=== PATIENT | female | born 1945 | race Caucasian/White ===

== ENCOUNTER 2018-03-11 13:36 | Inpatient (IN) ==
[2018-03-11] MEDS ORDERED: Ondansetron 4 MG/2 ML VIAL IVP ONE ×2 (14:00→17:28)
[2018-03-11] MEDS ORDERED: 0.9 % Sodium Chloride 500 ML IVC ONE (14:00)
[2018-03-11] MEDS ORDERED: *HR* FentaNYL (PF) 100 MCG/2 ML VIAL IVP ONE (14:00)
--- NOTE | 2018-03-11 14:12 | Emergency Department Note ---
Disposition Clinical Impression: Abdominal pain Qualifiers: Abdominal location: generalized Qualified Code(s): R10.84 - Generalized abdominal pain Disposition: Still a Patient Referrals: Jamarcus Rodriguez DO [Primary Care Provider] - General Adult HPI - General Chief complaint: ED Abdominal Pain Stated complaint: abd pain, rectal bleeding Time Seen by Provider: 03/11/18 13:46 Source: patient Limitations: no limitations - History of Present Illness Pain Scale: 9 - Related Data Allergies Allergy/AdvReac Type Severity Reaction Status Date / Time No Known Allergies Allergy Verified 03/11/18 13:41 Past Medical History - Past Medical History Medical history: Reports: arthritis, coronary artery disease, GERD, hyperlipidemia, hypertension, thyroid disease, other Psychiatric history: Reports: no psych history DISTRIBUTION CENTER ASSISTANT history: Reports: no DISTRIBUTION CENTER ASSISTANT history - Social History Smoking Status: Never smoker Smokeless Tobacco Status: No Alcohol use: Reports: none Drug use: Reports: none Physical Exam - General Limitations: no limitations General appearance: alert, in distress, obese Course - Reevaluation(s) Reevaluation #1: Attestation note: Patient was seen with the emergency medicine resident/nurse practitioner/ physician payroll administrative assistant/transitional resident/medical student: Dr. Shruthi Thompson I have personally performed a face to face evaluation on this patient. I have reviewed and agree with history and physical examination patient management and disposition. Briefly the salient points of the case are as follows: 72-year-old female presents by EMS comfortable by family for rectal pain abdominal pain and low- grade fever and rectal bleeding. Patient was seen at [facility] emergency Department last night, patient abdominal pelvic CT she said that "they saw something or attached" and my bowel. And they sent her home with prescription for [place] that she did not fill. Symptoms worsen this morning she contact her PCP who instructed with emergency Department patient having crampy pain nausea and no vomiting but has not eaten anything since yesterday. Patient appears in moderate distress with trial mucosa diffuse tenderness but no rebound. Patient will get A Release We Can See What Workup Was Done at the outside ED Also Do Screening Labs Here Give Her IV Fluid Give Her Fentanyl and Zofran for Pain and Nausea Control. Admission Is Being Considered. Disposition Pending. Time: 14:10 Vital Signs Temperature 100 F H 03/11/18 13:41 Pulse Rate 94 03/11/18 13:41 Respiratory Rate 20 03/11/18 13:41 Blood Pressure 135/74 03/11/18 13:41 O2 Sat by Pulse Oximetry 96 03/11/18 13:41 Temperature 100 F H 03/11/18 13:53 Pulse Rate 87 03/11/18 14:08 Respiratory Rate 21 03/11/18 14:08 Blood Pressure 106/52 03/11/18 14:08 O2 Sat by Pulse Oximetry 96 03/11/18 14:08 Oxygen Delivery Oxygen Delivery Room Air
--- NOTE | 2018-03-11 14:20 | Emergency Department Note ---
Disposition Clinical Impression: Bright red blood per rectum, Severe sepsis, Colitis Disposition: Admitted As Inpatient Condition: Fair Referrals: Jamarcus Rodriguez DO [Primary Care Provider] - Forms: ED Satisfaction Letter, Work/School Release Time of Disposition: 17:26 General Adult HPI - General Chief complaint: ED Abdominal Pain Stated complaint: abd pain, rectal bleeding Time Seen by Provider: 03/11/18 13:46 Source: patient Limitations: no limitations - History of Present Illness HPI Narrative: 72 yo female with diarrhea and rectal bleeding. She was seen at [facility] ER last night and told there was "something attached" to her bowel and that was "" and states she was told she should expect abdominal pain for the next several days. She was prescribed norco, which she has not filled. She woke up this morning with rectal bleeding running out of her depend and on to a pad on her bed. She has diarrhea that won't quit - when she dry heaves she has diarrhea. She has nausea with dry heaves, but she has not eaten today or last night. She drank a small amount of Sprite this morning. Pain Scale: 9 - Related Data Home Medications Medication Instructions Recorded Confirmed Atorvastatin Calcium [Lipitor] 80 mg PO HS 03/11/18 03/11/18 Citalopram [CeleXA] 20 mg PO DAILY 03/11/18 03/11/18 Hydrocortisone [Cortef] 10 mg PO QPM 03/11/18 03/11/18 Hydrocortisone [Cortef] 20 mg PO QAM 03/11/18 03/11/18 Isosorbide MONOnitrate (24 HR) 60 mg PO DAILY 03/11/18 03/11/18 [Imdur] Levothyroxine Sodium [Levoxyl] 75 mcg PO DAILY 03/11/18 03/11/18 Lisinopril [Zestril] 10 mg PO DAILY 03/11/18 03/11/18 Metoprolol [Lopressor] 25 mg PO BID 03/11/18 03/11/18 Omeprazole [PriLOSEC] 20 mg PO DAILY 03/11/18 03/11/18 Potassium Chloride [Klor-Con 10] 10 meq PO DAILY 03/11/18 03/11/18 Tolterodine LA (24 HR) [Detrol LA] 2 mg PO DAILY 03/11/18 03/11/18 Tramadol HCl [Ultram] 50 mg PO QID PRN 03/11/18 03/11/18 hydroCHLOROthiazide 25 mg PO DAILY 03/11/18 03/11/18 [Hydrochlorothiazide] Allergies Allergy/AdvReac Type Severity Reaction Status Date / Time No Known Allergies Allergy Verified 03/11/18 13:41 Past Medical History - Past Medical History Medical history: Reports: arthritis, coronary artery disease, GERD, hyperlipidemia, hypertension, thyroid disease, other Psychiatric history: Reports: no psych history FISHER EEL history: Reports: no FISHER EEL history - Social History Smoking Status: Never smoker Smokeless Tobacco Status: No Alcohol use: Reports: none Drug use: Reports: none Physical Exam - General Limitations: no limitations General appearance: alert, in distress, obese Course - Reevaluation(s) Reevaluation #1: Spoke to charge nurse at [facility]. Asked for labs and CT results. Charge nurse stated she would fax them - fax number given. Time: 14:24 Reevaluation #2: Spoke to radiology department. CT from [facility] Impression: No acute process. Hiatal hernia. Full report will be faxed. Time: 15:17 Reevaluation #3: Notified that patient had large stool with bright red blood per rectum. Rectal exam had not been performed before this time due to patient being taken to CT scan. Time: 16:20 Additional Reevaluation(s): Spoke to hospitalist, Dr. Taylor, who accepts patient for admission. Vital Signs Temperature 100 F H 03/11/18 13:41 Pulse Rate 94 03/11/18 13:41 Respiratory Rate 20 03/11/18 13:41 Blood Pressure 135/74 03/11/18 13:41 O2 Sat by Pulse Oximetry 96 03/11/18 13:41 Temperature 100 F H 03/11/18 13:53 Pulse Rate 87 03/11/18 14:08 Respiratory Rate 21 03/11/18 14:08 Blood Pressure 106/52 03/11/18 14:08 O2 Sat by Pulse Oximetry 96 03/11/18 14:08 Oxygen Delivery Oxygen Delivery Room Air
[2018-03-11 14:42] LABS: Basophils % 0.2 %; Eosinophils % 0.1 %
[2018-03-11 14:43] LABS: Basophils # 0.1 K/mcL (0.0-0.2); Hematocrit 40.8 % (35.3-44.9); Hemoglobin 13.9 g/dL (11.5-15.4); Immature Granulocytes % 0.8 % (0-4); Lymphocytes # 2.8 K/mcL (0.6-4.6); Lymphocytes % 9.7 %; Mean Corpuscular HGB Conc 34.1 g/dL (31.6-35.5); Mean Corpuscular Hemoglobin 32.3 pg (28.0-33.3); Mean Corpuscular Volume 94.7 fL (83.0-100.0); Mean Platelet Volume 9.6 fL (9.4-12.4); Monocytes # 2.1 K/mcL (0.0-1.3); Monocytes % 7.3 %; Neutrophils # 23.8 K/mcL (1.6-8.9); Platelet Count 227 K/mcL (140-400); Red Blood Count 4.31 M/mcL (3.82-4.97); Red Cell Distribution Width 13.3 % (11.5-14.5); Segmented Neutrophils % 81.9 %
[2018-03-11 14:47] LABS: Bilirubin,Urine Negative (Negative); Blood,Urine Trace (Negative); Clarity,Urine Clear (Clear); Color,Urine Yellow (Yellow); Glucose,Urine (UA) Normal (Normal); Ketones,Urine Negative (Negative); Leukocyte Esterase,Urine Negative (Negative); Nitrite,Urine Negative (Negative); Protein,Urine Trace mg/dL (Neg-Trace); Specific Gravity,Urine > 1.030 (1.010-1.025); Urobilinogen,Urine Normal (Normal)
[2018-03-11 14:50] LABS: Bacteria,Urine None Seen per hpf (None-Few); Hyaline Casts,Urine None Seen per lpf (None-Few); Squamous Epithelial Cell,Urine Many per lpf (None-Few)
[2018-03-11 15:00] LABS: Alanine Aminotransferase 15 Units/L (7-52); Albumin 3.7 g/dL (3.5-5.7); Albumin/Globulin Ratio 1.1 (1.1-2.2); Alkaline Phosphatase 108 Units/L (34-104); Aspartate Amino Transferase 21 Units/L (13-39); BUN/Creatinine Ratio 19 (6-26); Bilirubin,Direct 0.3 mg/dL (0.0-0.2); Bilirubin,Indirect 0.7 mg/dL (0.0-1.2); Blood Urea Nitrogen 18 mg/dL (8-23); Calcium 9.3 mg/dL (8.6-10.3); Carbon Dioxide 23 mEq/L (23-29); Chloride 95 mEq/L (98-107); Globulin 3.4 g/dL (2.4-3.5); Glucose 186 mg/dL (70-105); Osmolality,Calculated 279 (280-300); Potassium 3.1 mEq/L (3.5-5.1); Sodium 131 mEq/L (136-145); Total Protein 7.1 g/dL (6.4-8.9); eGFR For Non-African Americans 57 (> 60)
[2018-03-11 15:10] LABS: Platelet Estimate Normal (Normal)
[2018-03-11] MEDS ORDERED: Isovue-370 500 ML INFUS..BTL IV ONE (15:18)
[2018-03-11] MEDS ORDERED: 0.9 % Sodium Chloride 1,000 ML IVC ONE (15:20)
[2018-03-11 15:59] LABS: Magnesium 1.5 mg/dL (1.6-2.6); Phosphorous 3.3 mg/dL (2.7-4.5)
[2018-03-11] MEDS: Piperacillin/Tazobactam 3.375 GM in 0.9 % Sodium Chloride Mini Bag 100 ML IVPB SCH ×2 (17:21→23:39)
[2018-03-11] MEDS ORDERED: Hydrocortisone Sodium Succ 100 MG/2 ML VIAL IVP ONE (17:22)
[2018-03-11] MEDS ORDERED: Naloxone 0.4 MG/ML INJ IVP PRN ×2 (17:39)
[2018-03-11] MEDS ORDERED: *HR* Labetalol 20 MG/4 ML SYRINGE IVP PRN (17:42)
--- NOTE | 2018-03-11 17:50 | Internal Med History&Physical ---
Date of Encounter: 03/11/18 Time of Encounter: 18:20 Internal Medicine - H&P: HPI Chief complaint: Bleeding per rectum Admitted From: Home Plans for Post Hospital Care: Home History of present illness: Ms. Kamara is a 72-year-old female with coronary artery disease with negative stress test in 2017, GERD, hyperlipidemia, HTN, thyroid disease Seen and evaluated with family members at the bedside in the emergency room. Patient reports being in her usual state of health till yesterday morning when she developed sudden onset abdominal pain with initial difficulty passing stool , followed by diarrhea. She presented to an outside ER where she was told she had fat stranding and discharged home on pain medications. She reports that overnight, she continued to have bleeding per rectum which continued to trickle associated and sometimes mixed with stool. She reports minimal abdominal pain, she reports associated nausea. She has no vomiting. She reports low-grade fevers and chills at home. She denies cough, chest pain, and shortness of breath, trauma, and change in urinary habits. She was not on any blood thinners at home. She took a daily baby aspirin. She has a medical history of diverticulitis with a recent fistula repair several years ago. She also had a recent right knee replacement on January 2018 at an outside facility. She also has coronary artery disease, last stress test done in this facility in 2016 was unremarkable. No has stents placed in the past 18 years. His onset of symptoms, she has had about 8 bowel movements also to be bloody, she has had 2 here in this facility, or documented as bright red blood. Workup in the ER revealed leukocytosis with left shift, hypokalemia, hyponatremia, lactic acidosis with lactate of 4.3, hypomagnesemia 1.5. Urinalysis is unremarkable. Abdomen CAT scan with contrast showed bilateral thickening from proximal transverse colon to proximal descending colon likely related to colitis of infectious or inflammatory etiologies. She will be admitted inpatient for management of sepsis, ischemic colitis, lactic acidosis, Patient is full code. She is high risk due to current diagnosis, and need for intensive monitoring. Past Med Surg Social Fam HX - Past Medical History Medical history: arthritis, coronary artery disease, GERD, hyperlipidemia, hypertension, thyroid disease, other Additional medical history: Addisons, diverticulosis, DDD Psychiatric history: no psych history - Past Surgical History Additional surgical history: 2 rotater cuff surgeries, spinal fusion - Social History Smoking Status: Never smoker Smokeless Tobacco Status: No Alcohol use: none Drug use: none Internal Medicine - H&P: Meds Atorvastatin Calcium [Lipitor] 80 mg PO HS 03/11/18 [History] Citalopram [CeleXA] 20 mg PO DAILY 03/11/18 [History] Hydrocortisone [Cortef] 10 mg PO QPM 03/11/18 [History] Hydrocortisone [Cortef] 20 mg PO QAM 03/11/18 [History] Isosorbide MONOnitrate (24 HR) [Imdur] 60 mg PO DAILY 03/11/18 [History] Levothyroxine Sodium [Levoxyl] 75 mcg PO DAILY 03/11/18 [History] Lisinopril [Zestril] 10 mg PO DAILY 03/11/18 [History] Metoprolol [Lopressor] 25 mg PO BID 03/11/18 [History] Omeprazole [PriLOSEC] 20 mg PO DAILY 03/11/18 [History] Potassium Chloride [Klor-Con 10] 10 meq PO DAILY 03/11/18 [History] Tolterodine LA (24 HR) [Detrol LA] 2 mg PO DAILY 03/11/18 [History] Tramadol HCl [Ultram] 50 mg PO QID PRN 03/11/18 [History] hydroCHLOROthiazide [Hydrochlorothiazide] 25 mg PO DAILY 03/11/18 [History] 3 Allergy/AdvReac Type Severity Reaction Status Date / Time No Known Allergies Allergy Verified 03/11/18 13:41 All Systems PM: A 10-system review of systems was performed and is negative for pertinent findings except as documented above in the HPI. - Constitutional Constitutional: as per HPI - EENT Eyes: as per HPI Ears: as per HPI Nose, mouth and throat: as per HPI - Cardiovascular Cardiovascular ROS IM: as per HPI - Respiratory Respiratory: as per HPI - Gastrointestinal Gastrointestinal: as per HPI - Genitourinary Genitourinary: as per HPI - Musculoskeletal Musculoskeletal ROS IM: as per HPI - Integumentary Integumentary IM: as per HPI - Neurological Neurological ROS: as per HPI - Hematologic/Lymphatic Hematologic/Lymphatic: as per HPI - Constitutional Vitals: Temp Pulse Resp BP Pulse Ox 100 F H 93 20 156/75 94 03/11/18 13:53 03/11/18 17:29 03/11/18 17:29 03/11/18 17:29 03/11/18 17:29 General: Patient is alert, mild distress from nausea and mild abdominal pain, oriented x 3 Head: atraumatic, normocephalic, Eye: normal appearance, PERRL, no scleral icterus, no conjunctival injection Neck: normal inspection, trachea midline, full ROM, no carotid bruits Chest: normal inspection, symmetric chest rise, CTAB Respiratory: Good respiratory effort. Normal breath sounds. No wheezing or crackles. Cardiovascular: Regular rate and rhythm. S1 and S2, No clicks, rubs, gallops, or murmurs. No pedal edema Abdomen: Abdomen is soft, mild tenderness left lower quadrant no rebound, no sounds present in all quadrants, Musculoskeletal: Spontaneously moving all extremities, right knee with dressing , no evidence of infection Skin: warm, dry, intact. Neuro: Alert oriented x 3 normal cranial nerves, no focal deficits Psych: Patient's affect is normal Internal Med - H&P Results - Labs CBC & Chem 7: 03/11/18 14:20 03/11/18 14:20 Labs: Short CBC 03/11/18 Range/Units 14:20 WBC 29.0 H (4.3-11.1) K/mcL Hgb 13.9 (11.5-15.4) g/dL Hct 40.8 (35.3-44.9) % Plt Count 227 (140-400) K/mcL Neutrophils # 23.8 H (1.6-8.9) K/mcL BMP 03/11/18 14:20 Sodium 131 L Potassium 3.1 L Chloride 95 L Carbon Dioxide 23 BUN 18 Creatinine 0.96 Glucose 186 H Calcium 9.3 Liver Function 03/11/18 Range/Units 14:20 Total Bilirubin 1.0 (0.3-1.0) mg/dL Direct Bilirubin 0.3 H (0.0-0.2) mg/dL AST 21 (13-39) Units/L ALT 15 (7-52) Units/L Alkaline Phosphatase 108 H (34-104) Units/L Albumin 3.7 (3.5-5.7) g/dL Urine 03/11/18 Range/Units 14:38 Urine Color Yellow (Yellow) Urine Clarity Clear (Clear) Urine pH 6.0 (5.0-8.0) pH Units Ur Specific [place] > 1.030 H (1.010-1.025) Urine Protein Trace (Neg-Trace) mg/dL Urine Glucose (UA) Normal (Normal) mg/dL - Impressions ITS Impressions Abdomen/Pelvis CT 03/11/18 15:18 IMPRESSION: Bowel wall thickening from proximal transverse colon to proximal descending colon, new since March 10, 2018, likely related to colitis of infectious or inflammatory etiologies. D/ / Josh Fagan MD / Josh Fagan MD Interpreting Provider: Josh Fagan MD - Assessment and plan (1) Severe sepsis Current Visit: Yes Status: Acute Assessment and plan: Meets severe sepsis criteria with heart rate greater than 90, leukocytosis of 29 ,000, source of infection colitis, and lactic acidosis of 4 Follow final cultures Continue management as in colitis Continue IVF (2) Acute ischemic colitis Current Visit: Yes Status: Acute Assessment and plan: Suspected Findings could also be found infective colitis However given acuity of symptoms with continuos bleeding per rectum, suspect ischemia. Patient has no risk factors including A. fib and no recent bowel surgery. Continue IV fluid hydration Continue intravenous Zosyn, discontinue vancomycin no current indication for it at this time Associated lactic acidosis with lactate of 4, continue to monitor Consult cosmetic dentist (3) Lactic acidosis Current Visit: Yes Status: Acute Assessment and plan: Lactate 4 Abdominal pain minimal Continue IVF hydration Check timed lactate (4) Adrenal insufficiency Current Visit: Yes Status: Acute Assessment and plan: Patient with known chronic adrenal insufficiency Hold oral medications Continue hydrocortisone IV 100 mg every 8 hours, will taper as patient's condition improves. (5) Hypothyroidism Current Visit: Yes Status: Chronic Assessment and plan: Hold synthroid for now No indication to check TSH as patient's hypothyroidism is central Resume synthroid when patient starts to take po Qualifiers: Hypothyroidism type: unspecified Qualified Code(s): E03.9 - Hypothyroidism , unspecified (6) Hypertension Current Visit: Yes Status: Chronic Assessment and plan: Hold oral meds Labetalol IV q6h prn SBP >160, DBP >100 Qualifiers: Hypertension type: essential hypertension Qualified Code(s): I10 - Essential (primary) hypertension (7) Coronary artery disease Current Visit: Yes Status: Chronic Assessment and plan: hold ASA Hold statin Resume meds when patient is able to take po Qualifiers: Coronary Disease-Associated Artery/Lesion type: [place] artery [place] vs. transplanted heart: [place] heart Associated angina: without angina Qualified Code(s): I25.10 - Atherosclerotic heart disease of [place] coronary artery without angina pectoris (8) Colitis Current Visit: Yes Status: Acute Assessment and plan: as in ischemic colitis (9) Bright red blood per rectum Current Visit: Yes Status: Acute - Time Spent With Patient Total time spent is greater than 50% in coordination of care (as documented) at patient's floor/unit and/or counseling patient:
[2018-03-11] MEDS: 0.9 % Sodium Chloride 1,000 ML IVC SCH ×2 (18:34→20:31)
[2018-03-11] MEDS: OXYCODONE Oral CONC 10 MG/0.5 ML ORAL.SYG SL PRN (20:29)
[2018-03-11] MEDS: Hydrocortisone Sodium Succ 100 MG/2 ML VIAL IVP SCH (23:40)
[2018-03-12] MEDS: OXYCODONE Oral CONC 10 MG/0.5 ML ORAL.SYG SL PRN ×2 (03:27→15:27)
[2018-03-12 03:41] LABS: Basophils % 0.1 %; Immature Granulocytes % 0.9 % (0-4); Lymphocytes # 1.3 K/mcL (0.6-4.6); Lymphocytes % 5.2 %; Mean Corpuscular HGB Conc 33.6 g/dL (31.6-35.5); Mean Corpuscular Hemoglobin 30.9 pg (28.0-33.3); Mean Corpuscular Volume 91.9 fL (83.0-100.0); Mean Platelet Volume 9.5 fL (9.4-12.4); Monocytes # 0.6 K/mcL (0.0-1.3); Monocytes % 2.6 %; Platelet Count 209 K/mcL (140-400); Red Blood Count 3.59 M/mcL (3.82-4.97); Red Cell Distribution Width 13.2 % (11.5-14.5); Segmented Neutrophils % 91.2 %
[2018-03-12 03:43] LABS: Neutrophils # 22.2 K/mcL (1.6-8.9)
[2018-03-12 03:44] LABS: Hemoglobin 11.1 g/dL (11.5-15.4)
[2018-03-12 04:05] LABS: BUN/Creatinine Ratio 17 (6-26); Blood Urea Nitrogen 11 mg/dL (8-23); Calcium 8.2 mg/dL (8.6-10.3); Carbon Dioxide 21 mEq/L (23-29); Chloride 106 mEq/L (98-107); Glucose 134 mg/dL (70-105); Magnesium 1.9 mg/dL (1.6-2.6); Osmolality,Calculated 281 (280-300); Potassium 3.5 mEq/L (3.5-5.1); Sodium 135 mEq/L (136-145); eGFR For Non-African Americans > 60 (> 60)
[2018-03-12 04:19] LABS: Platelet Estimate Normal (Normal)
[2018-03-12] MEDS: 0.9 % Sodium Chloride 1,000 ML IVC SCH ×3 (05:03→19:41)
[2018-03-12] MEDS: Hydrocortisone Sodium Succ 100 MG/2 ML VIAL IVP SCH ×3 (05:04→16:51)
--- NOTE | 2018-03-12 08:14 | Electrocardiograph Report ---
[address] [address] Test Date: 2018-03-11 Pat Name: Ju Kamara Department: Room: 2N01 Gender: F Care Management Associate: : 1945 Requested By: Elsie Taylor Order Number: [id number] Reading MD: Cristhian Velasquez Measurements Intervals [place] Rate: 88 P: 10 MT: 145 QRS: 119 QRSD: 89 T: 21 QT: 422 QTc: 511 Interpretive Statements Sinus rhythm Left atrial enlargement Low voltage, precordial leads Nonspecific ST-T changes Prolonged QT interval Electronically Signed On 03-12-2018 8:12:37 EDT by Cristhian Velasquez
[2018-03-12] MEDS: Piperacillin/Tazobactam 3.375 GM in 0.9 % Sodium Chloride Mini Bag 100 ML IVPB SCH ×2 (08:21→15:21)
--- NOTE | 2018-03-12 09:22 | Internal Med Progress Note ---
Hospitalist Progress Note - Encounter Date of Encounter: 03/12/18 Time of Encounter: 08:50 - Subjective Interval History: Ms. Kamara is a 72-year-old female with coronary artery disease with negative stress test in 2017, GERD, hyperlipidemia, HTN, thyroid disease , [place]'s disease on chronic steroids She is admitted and being managed for ischemic colitis, sepsis, multiple electrolyte derangements. Seen and evaluated at the bedside this a.m., awaiting GI evaluation. Next and she denies new complaints and reports no more episodes of bloody diarrhea. He also reports significant improvement in abdominal discomfort. Hemoglobin with 2 point drop to 11, leukocytosis persists. Hypomagnesemia and hypokalemia resolved. Lactic acidosis resolved. She has remained afebrile. We will send GI panel and also check for C. difficile. Plan to begin to taper steroids a.m. - Exam Vitals: Temp Pulse Resp BP Pulse Ox 98.1 F 66 16 100/57 95 03/12/18 07:26 03/12/18 07:26 03/12/18 07:26 03/12/18 07:26 03/12/18 07:26 Exam: General: Patient is alert, oriented x 3, speaks full sentences not in any form of distress. Head: atraumatic, normocephalic, Eye: normal appearance, PERRL, no scleral icterus, no conjunctival injection Neck: normal inspection, trachea midline, full ROM, no carotid bruits Chest: normal inspection, symmetric chest rise, CTAB Respiratory: Good respiratory effort. Normal breath sounds. No wheezing or crackles. Cardiovascular: Regular rate and rhythm. S1 and S2, No clicks, rubs, gallops, or murmurs. No pedal edema Abdomen: Abdomen is soft, mild tenderness left lower quadrant no rebound, no sounds present in all quadrants, Musculoskeletal: Spontaneously moving all extremities, right knee with dressing , no evidence of infection Skin: warm, dry, intact. Neuro: Alert oriented x 3 normal cranial nerves, no focal deficits Psych: Patient's affect is normal - Assessment and Plan (1) Severe sepsis Current Visit: Yes Status: Acute Assessment and Plan: Improving On admission, met severe sepsis criteria with heart rate greater than 90, leukocytosis of 29,000, source of infection colitis, and lactic acidosis of 4 Lactic acidosis resolved Leukocytosis improving She has remained afebrile Blood pressures preserved Continue antibiotics Follow final cultures Continue management as in colitis Continue IVF, decrease the rate (2) Acute ischemic colitis Current Visit: Yes Status: Acute Assessment and Plan: Other differential Findings could also be found infective colitis However given acuity of symptoms with continuos bleeding per rectum, suspect ischemia. Patient has no risk factors including A. fib and no recent bowel surgery. Continue IV fluid hydration Continue intravenous Zosyn-day 2 GI evaluation pending Patient reports clinical improvement Lactic acidosis resolved Consider clear liquid diet after GI evaluation (3) Lactic acidosis Current Visit: Yes Status: Resolved Assessment and Plan: Admitting Lactate 4 Abdominal pain minimal Resolved with IV fluid hydration (4) Adrenal insufficiency Current Visit: Yes Status: Acute Assessment and Plan: Patient with known chronic adrenal insufficiency Hold oral medications Continue hydrocortisone IV 100 mg every 8 hours Begin IV PPI for GI prophylaxis Begin taper to 50 every 8 hrs by a.m. (5) Hypothyroidism Current Visit: Yes Status: Chronic Assessment and Plan: Hold synthroid for now No indication to check TSH as patient's hypothyroidism is central Resume synthroid when patient starts to take po (6) Hypertension Current Visit: Yes Status: Chronic Assessment and Plan: Hold oral meds Labetalol IV q6h prn SBP >160, DBP >100 (7) Coronary artery disease Current Visit: Yes Status: Chronic Assessment and Plan: hold ASA Hold statin Resume meds when patient is able to take po (8) Colitis Current Visit: Yes Status: Acute Assessment and Plan: as in ischemic colitis Check C. difficile (9) Bright red blood per rectum Current Visit: Yes Status: Acute Assessment and Plan: As in colitis (10) DVT prophylaxis Current Visit: Yes Status: Acute Assessment and Plan: SCDs due to bleeding per rectum - Time Spent with Patient Total time spent is greater than 50% in coordination of care (as documented) at patient's floor/unit and/or counseling patient: Plan of Care Discussed with: patient Internal Medicine: Result - Labs CBC & Chem 7: 03/12/18 03:23 03/12/18 03:23 Labs: Short CBC 03/12/18 Range/Units 03:23 WBC 24.3 H (4.3-11.1) K/mcL Hgb 11.1 L D (11.5-15.4) g/dL Hct 33.0 L (35.3-44.9) % Plt Count 209 (140-400) K/mcL Neutrophils # 22.2 H (1.6-8.9) K/mcL BMP 03/12/18 03:23 Sodium 135 L Potassium 3.5 Chloride 106 Carbon Dioxide 21 L BUN 11 Creatinine 0.65 Glucose 134 H Calcium 8.2 L - VTE Documentation of Mechanical Device: Intermittent pneumatic compression device Consult Discharge Plan - Plan Referrals: Jamarcus Rodriguez DO [Primary Care Provider] - (5) Hypothyroidism Qualifiers: Hypothyroidism type: unspecified Qualified Code(s): E03.9 - Hypothyroidism, unspecified (6) Hypertension Qualifiers: Hypertension type: essential hypertension Qualified Code(s): I10 - Essential (primary) hypertension (7) Coronary artery disease Qualifiers: Coronary Disease-Associated Artery/Lesion type: [place] artery [place] vs. transplanted heart: [place] heart Associated angina: without angina Qualified Code(s): I25.10 - Atherosclerotic heart disease of [place] coronary artery without angina pectoris
--- NOTE | 2018-03-12 11:03 | Gastroenterology Consult Note ---
<Yvan Dunbar - Last Filed: 03/12/18 10:59> Date of Encounter: 03/12/18 Time of Encounter: 09:45 - Assessment and plan (1) Colitis Current Visit: Yes Status: Acute Assessment and plan: Likely ischemic colitis. Continue IV fluids and antibiotics. Check GI panel. Plan for colonoscopy in 6 weeks as outpatient. (2) Bright red blood per rectum Current Visit: Yes Status: Acute Assessment and plan: Secondary to ischemic colitis. - Time Spent With Patient Total time spent is greater than 50% in coordination of care (as documented) at patient's floor/unit and/or counseling patient: GI History of Present Illness - Data of Consult Patient: new to practice Consult date: 03/12/18 Requesting Physician: Elsie Taylor MD - Consult Narrative Reason for consult: Bleeding per rectum, colitis History of present illness: Ms. Kamara is a 72 year old female with PMHx of arthritis, CAD, GERD, HLD, HTN, who presented to an outside ED with sudden onset of abdominal pain. She was discharged home on pain medications. While at home she started to have BRBPR. She reports nausea, low-grade fever and chills, and minimal abdominal pain. She denies chest pain, shortness of breath, vomiting, or melena. CT A/P with bowel wall thickening from proximal transverse colon to proximal descending colon likely related to colitis of infectious or inflammatory etiologies. She was started on IV antibiotics and IV fluid. Procedures: None NSAIDs: ASA Anticoagulation: None Past Med Surg Social Fam HX - Past Medical History Medical history: arthritis, coronary artery disease, GERD, hyperlipidemia, hypertension, thyroid disease, other Additional medical history: Addisons, diverticulosis, DDD Psychiatric history: no psych history - Past Surgical History Surgical History: knee replacement Additional surgical history: 2 rotater cuff surgeries, spinal fusion - Social History Smoking Status: Never smoker Smokeless Tobacco Status: No Alcohol use: none Drug use: none - Family History Mother Living Status: Age at : 85 Cause of : sepsis Father Living Status: Age at : 47 Hx Family Cardiac Disorders: Yes (IA) Sister Hx Family Cardiac Disorders: Yes Hx Family Cancer: Yes (lung CA) Brother Hx Family Cancer: Yes (prostate, throat CA) - Gastrointestinal Gastrointestinal: Present: as per HPI - Constitutional Constitutional: as per HPI - EENT Eyes: as per HPI Ears: Present: as per HPI Nose, mouth and throat: Present: as per HPI - Cardiovascular Cardiovascular ROS: Present: as per HPI - Respiratory Respiratory IM: Present: as per HPI - Genitourinary Genitourinary: Absent: change in color, Urinary frequency - Neurological ROS Neurological GI: Present: as per HPI - Hematologic/Lymphatic Hematologic/Lymphatic pediatric: Present: as per HPI - Musculoskeletal Musculoskeletal ROS GI: Present: as per HPI - Integumentary Integumentary GI: Present: as per HPI - Psychiatric ROS Psychiatric GI: Present: as per HPI - Endocrine Endocrine IM: Present: as per HPI - Constitutional Vitals: Temp Pulse Resp BP Pulse Ox 98.1 F 66 16 100/57 95 03/12/18 07:26 03/12/18 07:26 03/12/18 07:26 03/12/18 07:26 03/12/18 07:26 General appearance: Present: cooperative, A&O X 3, no acute distress, answers questions appropriately - Head Head exam: Present: atraumatic, normocephalic - Eye Eye exam: Present: normal appearance, sclera anicteric - ENT ENT exam: Present: mucous membranes moist - Neck Neck exam general surgery: Present: normal inspection, trachea midline - Respiratory Respiratory exam: Present: decreased breath sounds, CTAB. Absent: rales, rhonchi - Cardiovascular Cardiovascular exam: Present: RRR, +S1, +S2 - GI/Abdominal GI/Abdominal exam: Present: soft, tenderness (Mild left sided), no peritoneal signs. Absent: distended, firm, guarding - Rectal Rectal exam: Present: deferred - Extremities Exam Extremities exam: Present: warm - Neurological Exam Neurological exam: Present: no focal deficits - Psychiatric Psychiatric exam: Present: normal affect, normal mood - Skin Skin exam: Present: dry, intact, normal color, warm Results - Labs CBC & Chem 7: 03/12/18 03:23 03/12/18 03:23 Labs: Last Result Calcium 8.2 mg/dL (8.6-10.3) L 03/12/18 03:23 Entire Visit Hgb 11.1 g/dL (11.5-15.4) L D 03/12/18 03:23 Hct 33.0 % (35.3-44.9) L 03/12/18 03:23 Total Bilirubin 1.0 mg/dL (0.3-1.0) 03/11/18 14:20 AST 21 Units/L (13-39) 03/11/18 14:20 ALT 15 Units/L (7-52) 03/11/18 14:20 Consult Discharge Plan - Plan Referrals: Jamarcus Rodriguez, DO [Primary Care Provider] - <Edouard Pereira - Last Filed: 03/12/18 14:51> Date of Encounter: 03/12/18 - Time Spent With Patient Total time spent is greater than 50% in coordination of care (as documented) at patient's floor/unit and/or counseling patient: GI History of Present Illness - Data of Consult Requesting Physician: Elsie Taylor MD - Consult Narrative History of present illness: Ms. Kamara is a 72 year old female - Constitutional Vitals: Temp Pulse Resp BP Pulse Ox 98.0 F 68 16 121/71 98 03/12/18 11:12 03/12/18 11:12 03/12/18 11:12 03/12/18 11:12 03/12/18 11:12 Results - Labs CBC & Chem 7: 03/12/18 03:23 03/12/18 03:23 Labs: Last Result Calcium 8.2 mg/dL (8.6-10.3) L 03/12/18 03:23 Entire Visit Hgb 11.1 g/dL (11.5-15.4) L D 03/12/18 03:23 Hct 33.0 % (35.3-44.9) L 03/12/18 03:23 Total Bilirubin 1.0 mg/dL (0.3-1.0) 03/11/18 14:20 AST 21 Units/L (13-39) 03/11/18 14:20 ALT 15 Units/L (7-52) 03/11/18 14:20 - Attending Attestation I have personally performed a face to face evaluation on this patient. I have reviewed and agree with the care plan. History and Exam by me shows: Pt seen, admitted with rectal bleed. O/E : abd soft,bening. Ct with splenic area inflammation consistent with isc colitis A: Ishemic colitis of splenic flexure R: Fluids, Antibiotics , colon out pt 2 months. clear advance as tolerated
[2018-03-12] MEDS: Pantoprazole 40 MG VIAL IVP SCH (16:51)
[2018-03-12] MEDS: Ondansetron 4 MG/2 ML VIAL IVP PRN (16:51)
[2018-03-13 00:04] LABS: Adenovirus F 40/41 PCR Not detected (Not detect); Astrovirus PCR Not detected (Not detect); C.difficile Toxin A/B by PCR Not detected (Not detect); Campylobacter by PCR Not detected (Not detect); Cryptosporidium by PCR Not detected (Not detect); Cyclospora cayetanensis PCR Not detected (Not detect); E. coli O157 by PCR Not detected (Not detect); Entamoeba histolytica PCR Not detected (Not detect); Enteroaggregative E.coli(EAEC) Not detected (Not detect); Enteropathogenic E.coli(EPEC) Not detected (Not detect); Enterotoxigenic E.coli (ETEC) Not detected (Not detect); Giardia lamblia PCR Not detected (Not detect); Norovirus GI/GII PCR Not detected (Not detect); Plesiomonas shigelloides PCR Not detected (Not detect); Rotavirus A PCR Not detected (Not detect); Salmonella PCR Not detected (Not detect); Sapovirus PCR Not detected (Not detect); Shig/EnteroinvasiveE coli EIEC Not detected (Not detect); Shigalike tox-prod E coli STEC Not detected (Not detect); Vibrio PCR Not detected (Not detect); Vibrio cholerae PCR Not detected (Not detect); Yersinia enterocolitica PCR Not detected (Not detect)
[2018-03-13] MEDS: Hydrocortisone Sodium Succ 100 MG/2 ML VIAL IVP SCH ×3 (00:18→20:40)
[2018-03-13] MEDS: Piperacillin/Tazobactam 3.375 GM in 0.9 % Sodium Chloride Mini Bag 100 ML IVPB SCH ×3 (00:19→16:30)
[2018-03-13] MEDS: OXYCODONE Oral CONC 10 MG/0.5 ML ORAL.SYG SL PRN ×3 (00:44→20:41)
[2018-03-13 05:18] LABS: Basophils % 0.1 %; Lymphocytes % 4.2 %; Mean Platelet Volume 10.3 fL (9.4-12.4); Platelet Count 220 K/mcL (140-400); Red Cell Distribution Width 13.2 % (11.5-14.5)
[2018-03-13 05:20] LABS: Immature Granulocytes % 1.7 % (0-4); Lymphocytes # 1.2 K/mcL (0.6-4.6); Mean Corpuscular HGB Conc 34.4 g/dL (31.6-35.5); Mean Corpuscular Hemoglobin 31.9 pg (28.0-33.3); Mean Corpuscular Volume 92.8 fL (83.0-100.0); Monocytes % 3.5 %; Neutrophils # 24.8 K/mcL (1.6-8.9); Red Blood Count 3.45 M/mcL (3.82-4.97); Segmented Neutrophils % 90.5 %
[2018-03-13 05:32] LABS: BUN/Creatinine Ratio 15 (6-26); Blood Urea Nitrogen 10 mg/dL (8-23); Calcium 8.5 mg/dL (8.6-10.3); Carbon Dioxide 23 mEq/L (23-29); Chloride 105 mEq/L (98-107); Glucose 120 mg/dL (70-105); Osmolality,Calculated 280 (280-300); Sodium 135 mEq/L (136-145); eGFR For Non-African Americans > 60 (> 60)
[2018-03-13 05:55] LABS: Platelet Estimate Normal (Normal)
[2018-03-13] MEDS: Isosorbide MONOnitrate (24 HR) 60 MG TAB.ER.24H PO SCH (08:34)
[2018-03-13] MEDS: Folic Acid 1 MG TABLET PO SCH (08:34)
[2018-03-13] MEDS: hydroCHLOROthiazide 25 MG TABLET PO SCH (08:34)
[2018-03-13] MEDS: Vitamin B Complex/Vit C/Vit E 1 EACH TABLET PO SCH (08:34)
[2018-03-13] MEDS: Loratadine 10 MG TABLET PO SCH (08:35)
[2018-03-13] MEDS: (Biotin [Biotin] 1,000 MCG) PO SCH (08:36)
[2018-03-13] MEDS: Pantoprazole 40 MG VIAL IVP SCH (08:37)
[2018-03-13] MEDS: [UNRECOGNIZED DRUG - OTHER] PO SCH (08:37)
--- NOTE | 2018-03-13 09:44 | Internal Med Progress Note ---
Hospitalist Progress Note - Encounter Date of Encounter: 03/13/18 Time of Encounter: 09:25 - Subjective Interval History: Ms. Kamara is a 72-year-old female with coronary artery disease with negative stress test in 2017, GERD, hyperlipidemia, HTN, thyroid disease , [place]'s disease on chronic steroids She is admitted and being managed for ischemic colitis, sepsis, multiple electrolyte derangements. Seen and evaluated at the bedside this a.m She has no new complains, but is very emotional this a.m Her sepsis is improving GI eval noted-plan for colonoscopy in 6 weeks as out-patient She is clinically improving We will resume all her home meds po, and begin tapering steroids - Exam Vitals: Temp Pulse Resp BP Pulse Ox 98.3 F 73 18 161/92 97 03/13/18 07:04 03/13/18 07:04 03/13/18 07:04 03/13/18 07:04 03/13/18 07:04 Exam: General: Patient is alert, oriented x 3, speaks full sentences not in any form of distress. Head: atraumatic, normocephalic, Eye: normal appearance, PERRL, no scleral icterus, no conjunctival injection Neck: normal inspection, trachea midline, full ROM, no carotid bruits Chest: normal inspection, symmetric chest rise, CTAB Respiratory: Good respiratory effort. Normal breath sounds. No wheezing or crackles. Cardiovascular: Regular rate and rhythm. S1 and S2, No clicks, rubs, gallops, or murmurs. No pedal edema Abdomen: Abdomen is soft, not tender, normal bowel sounds present in all quadrants, Musculoskeletal: Spontaneously moving all extremities, right knee with dressing , no evidence of infection Skin: warm, dry, intact. Neuro: Alert oriented x 3 normal cranial nerves, no focal deficits Psych: Depressed about family issues - Assessment and Plan (1) Severe sepsis Current Visit: Yes Status: Acute Assessment and Plan: Improving On admission, met severe sepsis criteria with heart rate greater than 90, leukocytosis of 29,000, source of infection colitis, and lactic acidosis of 4 Lactic acidosis resolved Leukocytosis persistent, however, patient is on high dose steroids for yvon' s She has remained afebrile Blood pressures preserved Continue antibiotics Follow final cultures Discontinue IVF (2) Acute ischemic colitis Current Visit: Yes Status: Acute Assessment and Plan: Improving Other differential Findings could also be found infective colitis However given acuity of symptoms with continuos bleeding per rectum, suspect ischemia. Patient has no risk factors including A. fib and no recent bowel surgery. Discontinue IV fluid hydration Continue intravenous Zosyn-day 3 GI evaluation noted and appreciated Patient reports clinical improvement Lactic acidosis resolved Stool panel negative, c.diff negative Advance diet (3) Lactic acidosis Current Visit: Yes Status: Resolved Assessment and Plan: Admitting Lactate 4 Resolved with IV fluid hydration (4) Adrenal insufficiency Current Visit: Yes Status: Chronic Assessment and Plan: Patient with known chronic adrenal insufficiency Hold oral medications Taper to 50q8h IV hydrocort Continue IV PPI Continue to monitor BP (5) Hypothyroidism Current Visit: Yes Status: Chronic Assessment and Plan: Resume home synthroid (6) Hypertension Current Visit: Yes Status: Chronic Assessment and Plan: resumed all home medds this a.m (7) Coronary artery disease Current Visit: Yes Status: Chronic Assessment and Plan: Continue home meds, Hb stable, resume ASA (8) Colitis Current Visit: Yes Status: Acute Assessment and Plan: as in ischemic colitis C.diff negative GI stool panel negative (9) Bright red blood per rectum Current Visit: Yes Status: Acute Assessment and Plan: As in colitis For colonoscopy as out-patient (10) DVT prophylaxis Current Visit: Yes Status: Acute Assessment and Plan: SCDs due to bleeding per rectum - Time Spent with Patient Total time spent is greater than 50% in coordination of care (as documented) at patient's floor/unit and/or counseling patient: Plan of Care Discussed with: patient Internal Medicine: Result - Labs CBC & Chem 7: 03/13/18 03:55 03/13/18 03:55 Labs: Short CBC 03/13/18 Range/Units 03:55 WBC 27.4 H (4.3-11.1) K/mcL Hgb 11.0 L (11.5-15.4) g/dL Hct 32.0 L (35.3-44.9) % Plt Count 220 (140-400) K/mcL Neutrophils # 24.8 H (1.6-8.9) K/mcL BMP 03/13/18 03:55 Sodium 135 L Potassium 3.0 L Chloride 105 Carbon Dioxide 23 BUN 10 Creatinine 0.66 Glucose 120 H Calcium 8.5 L - VTE Documentation of Mechanical Device: Intermittent pneumatic compression device Consult Discharge Plan - Plan Referrals: Jamarcus Rodriguez DO [Primary Care Provider] - (5) Hypothyroidism Qualifiers: Hypothyroidism type: unspecified Qualified Code(s): E03.9 - Hypothyroidism, unspecified (6) Hypertension Qualifiers: Hypertension type: essential hypertension Qualified Code(s): I10 - Essential (primary) hypertension (7) Coronary artery disease Qualifiers: Coronary Disease-Associated Artery/Lesion type: [place] artery [place] vs. transplanted heart: [place] heart Associated angina: without angina Qualified Code(s): I25.10 - Atherosclerotic heart disease of [place] coronary artery without angina pectoris
[2018-03-13] MEDS: Tolterodine LA (24 HR) 2 MG CAP.ER.24H PO SCH (10:18)
[2018-03-13] MEDS: traMADol 50 MG TABLET PO PRN (10:22)
[2018-03-13] MEDS ORDERED: Hydrocortisone Sodium Succ 100 MG/2 ML VIAL IVP SCH (14:00)
[2018-03-14] MEDS: Piperacillin/Tazobactam 3.375 GM in 0.9 % Sodium Chloride Mini Bag 100 ML IVPB SCH (02:43)
[2018-03-14 05:41] LABS: Basophils % 0.1 %; Hematocrit 28.7 % (35.3-44.9); Hemoglobin 9.7 g/dL (11.5-15.4); Immature Granulocytes % 1.9 % (0-4); Immature Platelets 3.8 % (1.1-6.1); Lymphocytes # 2.1 K/mcL (0.6-4.6); Lymphocytes % 9.4 %; Mean Corpuscular HGB Conc 33.8 g/dL (31.6-35.5); Mean Corpuscular Hemoglobin 30.7 pg (28.0-33.3); Mean Corpuscular Volume 90.8 fL (83.0-100.0); Monocytes # 1.2 K/mcL (0.0-1.3); Monocytes % 5.3 %; Neutrophils # 18.5 K/mcL (1.6-8.9); Platelet Count 233 K/mcL (140-400); Red Blood Count 3.16 M/mcL (3.82-4.97); Red Cell Distribution Width 13.2 % (11.5-14.5); Segmented Neutrophils % 83.3 %
[2018-03-14 05:56] LABS: BUN/Creatinine Ratio 16 (6-26); Blood Urea Nitrogen 11 mg/dL (8-23); Calcium 8.3 mg/dL (8.6-10.3); Carbon Dioxide 24 mEq/L (23-29); Chloride 107 mEq/L (98-107); Glucose 119 mg/dL (70-105); Osmolality,Calculated 285 (280-300); Potassium 2.9 mEq/L (3.5-5.1); Sodium 137 mEq/L (136-145); eGFR For Non-African Americans > 60 (> 60)
[2018-03-14] MEDS: Hydrocortisone Sodium Succ 100 MG/2 ML VIAL IVP SCH ×3 (06:24→21:28)
[2018-03-14] MEDS ORDERED: 0.9 % Sodium Chloride 250 ML ONE ×2 (08:28→15:43)
[2018-03-14] MEDS: Tolterodine LA (24 HR) 2 MG CAP.ER.24H PO SCH (08:35)
[2018-03-14] MEDS: Isosorbide MONOnitrate (24 HR) 60 MG TAB.ER.24H PO SCH (08:36)
[2018-03-14] MEDS: Loratadine 10 MG TABLET PO SCH (08:36)
[2018-03-14] MEDS: hydroCHLOROthiazide 25 MG TABLET PO SCH (08:36)
[2018-03-14] MEDS: metroNIDAZOLE 500 MG TABLET PO SCH ×3 (08:36→21:28)
[2018-03-14] MEDS: Folic Acid 1 MG TABLET PO SCH (08:37)
[2018-03-14] MEDS: Vitamin B Complex/Vit C/Vit E 1 EACH TABLET PO SCH (08:37)
[2018-03-14] MEDS: Pantoprazole 40 MG VIAL IVP SCH (08:37)
[2018-03-14] MEDS: [UNRECOGNIZED DRUG - OTHER] PO SCH (08:38)
[2018-03-14] MEDS: (Biotin [Biotin] 1,000 MCG) PO SCH (08:38)
--- NOTE | 2018-03-14 08:57 | Internal Med Progress Note ---
Hospitalist Progress Note - Encounter Date of Encounter: 03/14/18 Time of Encounter: 08:54 - Subjective Interval History: Ms. Kamara is a 72-year-old female with coronary artery disease with negative stress test in 2017, GERD, hyperlipidemia, HTN, thyroid disease , [place]'s disease on chronic steroids She is admitted and being managed for ischemic colitis, sepsis, multiple electrolyte derangements. Sepsis is resolving She has hypokalemia and slight drop in Hb this a.m Shes for colonoscopy as outpatient She was seen and eval at the bedside this a.m with the RN No new complains She is now having formed and brown BM - Exam Vitals: Temp Pulse Resp BP Pulse Ox 97.8 F 61 17 162/80 100 03/14/18 06:43 03/14/18 06:43 03/14/18 06:43 03/14/18 06:43 03/14/18 06:43 Exam: General: Calm, in bed, no distress Head: atraumatic, normocephalic, Eye: normal appearance, PERRL, no scleral icterus, no conjunctival injection Neck: normal inspection, trachea midline, full ROM, no carotid bruits Chest: normal inspection, symmetric chest rise, CTAB Cardiovascular: Regular rate and rhythm. S1 and S2, No clicks, rubs, gallops, or murmurs. No pedal edema Abdomen: Abdomen is soft, not tender, normal bowel sounds present in all quadrants, Musculoskeletal: Spontaneously moving all extremities, right knee dressing removed, stitches intact no evidence of infection Skin: warm, dry, intact. Neuro: Alert oriented x 3 normal cranial nerves, no focal deficits Psych: Normal mood this mrn - Assessment and Plan (1) Severe sepsis Current Visit: Yes Status: Acute Assessment and Plan: Improving On admission, met severe sepsis criteria with heart rate greater than 90, leukocytosis of 29,000, source of infection colitis, and lactic acidosis of 4 Lactic acidosis resolved Leukocytosis persistent, however, patient is on high dose steroids for yvon' s She has remained afebrile Blood pressures preserved Continue antibiotics Cultures preliminary negative Discontinued IVF 03/13, patient is hemodynamically stable (2) Acute ischemic colitis Current Visit: Yes Status: Acute Assessment and Plan: Improving Other differential Findings could also be found infective colitis However given acuity of symptoms with continuos bleeding per rectum, suspect ischemia. Patient has no risk factors including A. fib and no recent bowel surgery. Discontinued IV fluid hydration 03/13 Discontinued intravenous Zosyn after day 3 GI evaluation noted and appreciated-for colonoscopy as out-patient Patient reports clinical improvement Lactic acidosis resolved Stool panel negative, c.diff negative Tolerating regular diet Continue Cipro and Flagyl-day 1, total 4 days of antibiotics so far Possible discharge a.m if patient remains stable (3) Lactic acidosis Current Visit: Yes Status: Resolved Assessment and Plan: Admitting Lactate 4 Resolved with IV fluid hydration (4) Adrenal insufficiency Current Visit: Yes Status: Chronic Assessment and Plan: Patient with known chronic adrenal insufficiency Hold oral medications Taper to 25mg q8h Resume po meds prior to discharge Continue IV PPI Continue to monitor BP (5) Hypothyroidism Current Visit: Yes Status: Chronic Assessment and Plan: Continue home synthroid (6) Hypertension Current Visit: Yes Status: Chronic Assessment and Plan: Continue home meds (7) Coronary artery disease Current Visit: Yes Status: Chronic Assessment and Plan: Continue home meds, Hb stable, resume ASA (8) Colitis Current Visit: Yes Status: Acute Assessment and Plan: as in ischemic colitis C.diff negative GI stool panel negative (9) Bright red blood per rectum Current Visit: Yes Status: Acute Assessment and Plan: As in colitis For colonoscopy as out-patient (10) DVT prophylaxis Current Visit: Yes Status: Acute Assessment and Plan: SCDs due to bleeding per rectum (11) Hypokalemia Current Visit: Yes Status: Acute Assessment and Plan: Replaced with 80meq-40meq IV and 40meq po, recheck K p.m - Time Spent with Patient Total time spent is greater than 50% in coordination of care (as documented) at patient's floor/unit and/or counseling patient: Plan of Care Discussed with: patient Internal Medicine: Result - Labs CBC & Chem 7: 03/14/18 04:41 03/14/18 04:41 Labs: Short CBC 03/14/18 Range/Units 04:41 WBC 22.2 H (4.3-11.1) K/mcL Hgb 9.7 L (11.5-15.4) g/dL Hct 28.7 L (35.3-44.9) % Plt Count 233 (140-400) K/mcL Neutrophils # 18.5 H (1.6-8.9) K/mcL BMP 03/14/18 04:41 Sodium 137 Potassium 2.9 L Chloride 107 Carbon Dioxide 24 BUN 11 Creatinine 0.69 Glucose 119 H Calcium 8.3 L - VTE Documentation of Mechanical Device: Graduated compression elastic hosiery Consult Discharge Plan - Plan Referrals: Jamarcus Rodriguez DO [Primary Care Provider] - (5) Hypothyroidism Qualifiers: Hypothyroidism type: unspecified Qualified Code(s): E03.9 - Hypothyroidism, unspecified (6) Hypertension Qualifiers: Hypertension type: essential hypertension Qualified Code(s): I10 - Essential (primary) hypertension (7) Coronary artery disease Qualifiers: Coronary Disease-Associated Artery/Lesion type: [place] artery [place] vs. transplanted heart: [place] heart Associated angina: without angina Qualified Code(s): I25.10 - Atherosclerotic heart disease of [place] coronary artery without angina pectoris
[2018-03-14] MEDS: OXYCODONE Oral CONC 10 MG/0.5 ML ORAL.SYG SL PRN (11:51)
[2018-03-14] MEDS: traMADol 50 MG TABLET PO PRN (22:45)
[2018-03-15 05:02] LABS: Basophils % 0.2 %; Hematocrit 30.3 % (35.3-44.9); Hemoglobin 10.4 g/dL (11.5-15.4); Immature Granulocytes % 1.1 % (0-4); Lymphocytes # 1.7 K/mcL (0.6-4.6); Lymphocytes % 11.1 %; Mean Corpuscular HGB Conc 34.3 g/dL (31.6-35.5); Mean Corpuscular Hemoglobin 31.1 pg (28.0-33.3); Mean Corpuscular Volume 90.7 fL (83.0-100.0); Mean Platelet Volume 9.5 fL (9.4-12.4); Monocytes # 0.8 K/mcL (0.0-1.3); Monocytes % 5.2 %; Neutrophils # 12.3 K/mcL (1.6-8.9); Platelet Count 229 K/mcL (140-400); Red Blood Count 3.34 M/mcL (3.82-4.97); Segmented Neutrophils % 82.4 %
[2018-03-15 05:21] LABS: BUN/Creatinine Ratio 19 (6-26); Blood Urea Nitrogen 12 mg/dL (8-23); Calcium 8.3 mg/dL (8.6-10.3); Carbon Dioxide 25 mEq/L (23-29); Chloride 104 mEq/L (98-107); Glucose 126 mg/dL (70-105); Osmolality,Calculated 285 (280-300); Potassium 2.7 mEq/L (3.5-5.1); Sodium 137 mEq/L (136-145); eGFR For Non-African Americans > 60 (> 60)
[2018-03-15] MEDS: Hydrocortisone Sodium Succ 100 MG/2 ML VIAL IVP SCH (06:23)
[2018-03-15] MEDS: OXYCODONE Oral CONC 10 MG/0.5 ML ORAL.SYG SL PRN ×2 (07:02→20:39)
[2018-03-15] MEDS: Loratadine 10 MG TABLET PO SCH (07:39)
[2018-03-15] MEDS: metroNIDAZOLE 500 MG TABLET PO SCH ×3 (07:39→20:39)
[2018-03-15] MEDS: Tolterodine LA (24 HR) 2 MG CAP.ER.24H PO SCH (07:39)
[2018-03-15] MEDS: Folic Acid 1 MG TABLET PO SCH (07:39)
[2018-03-15] MEDS: hydroCHLOROthiazide 25 MG TABLET PO SCH (07:39)
[2018-03-15] MEDS: Isosorbide MONOnitrate (24 HR) 60 MG TAB.ER.24H PO SCH (07:39)
[2018-03-15] MEDS: [UNRECOGNIZED DRUG - OTHER] PO SCH (07:40)
[2018-03-15] MEDS: Pantoprazole 40 MG VIAL IVP SCH (07:40)
[2018-03-15] MEDS: Vitamin B Complex/Vit C/Vit E 1 EACH TABLET PO SCH (07:40)
[2018-03-15] MEDS: (Biotin [Biotin] 1,000 MCG) PO SCH (07:41)
[2018-03-15] MEDS ORDERED: Isovue-370 500 ML INFUS..BTL IV ONE (11:27)
[2018-03-15] MEDS ORDERED: Potassium Chloride 40 MEQ, Lidocaine 1% 2 ML in D5% in Water 500 ML IVPB ONE (11:58)
[2018-03-15 12:03] LABS: ABG Base Excess 6 mEq/L (-2 to 3); ABG HCO3 30 mEq/L (21-27); ABG Oxygen Saturation 98 % (95-98); ABG PCO2 40 mmHg (35-45); ABG PH 7.48 pH Units (7.32-7.45); ABG PO2 93 mmHg (85-104); ABG TCO2 31 mEq/L (20-26)
[2018-03-15] MEDS: traMADol 50 MG TABLET PO PRN (16:36)
[2018-03-15] MEDS: Hydrocortisone 10 MG TABLET PO SCH (16:36)
[2018-03-15] MEDS ORDERED: *HR* Heparin 5,000 UNIT/ML VIAL IVP PRN ×2 (17:06)
[2018-03-15] MEDS ORDERED: *HR* Heparin 5,000 UNIT/ML VIAL IVP ONE (17:06)
--- NOTE | 2018-03-15 17:13 | Internal Med Progress Note ---
Hospitalist Progress Note - Encounter Date of Encounter: 03/15/18 Time of Encounter: 11:00 - Subjective Interval History: Patient is a 72-year-old female with past medical history significant for coronary artery disease with negative stress test in 2017, GERD, hyperlipidemia , HTN, thyroid disease , [place]'s disease on chronic steroids who was admitted admitted and being managed for ischemic colitis. She also during this time has had acute hypoxic respiratory failure and found to have a acute right lower lobe PE. - Exam Vitals: Temp Pulse Resp BP Pulse Ox 98.0 F 61 18 167/89 100 03/15/18 10:56 03/15/18 10:56 03/15/18 10:56 03/15/18 10:56 03/15/18 10:56 Exam: Gen.: Nonacute distress, alert and oriented 3 ENT: Mucosal membranes moist Respiratory: Lungs are clear to auscultation bilaterally without any wheezing rhonchi or rales Cardiovascular: Normal S1 and S2 regular rate rhythm no murmurs rubs or gallops Abdomen: Soft, nontender and nondistended with positive bowel sounds Extremities: No lower extremity edema Skin: Normal color - Assessment and Plan (1) Pulmonary embolism Current Visit: Yes Status: Acute Assessment and Plan: Patient found to have acute segmental pulmonary artery embolism in the right lower lobe Will order echocardiogram Will start patient on heparin drip (2) Acute respiratory failure with hypoxia Current Visit: Yes Status: Acute Assessment and Plan: Patient with acute hypoxic respiratory failure secondary to the above Wean oxygen as tolerates Echocardiogram pending (3) Acute ischemic colitis Current Visit: Yes Status: Acute Assessment and Plan: Patient presented with a history of lower GI bleed and GI was consulted and suspects patient with ischemic colitis Recommendations for patient to continue IV Cipro and Flagyl She reports that bloody bowel movements have resolved. Recommendations for patient to follow-up in 6 weeks for colonoscopy. (4) Adrenal insufficiency Current Visit: Yes Status: Chronic Assessment and Plan: Patient will be Descalated back to home dose of prednisone (5) Hypothyroidism Current Visit: Yes Status: Chronic Assessment and Plan: Continue home synthroid (6) Hypertension Current Visit: Yes Status: Chronic Assessment and Plan: Continue home meds (7) Coronary artery disease Current Visit: Yes Status: Chronic Assessment and Plan: Continue home meds, Hb stable, resume ASA (8) Hypokalemia Current Visit: Yes Status: Acute (9) Severe sepsis Current Visit: Yes Status: Acute Assessment and Plan: Resolved (10) DVT prophylaxis Current Visit: Yes Status: Acute Assessment and Plan: Patient's hemoglobin now stable and patient denies any further bloody bowel movements. Patient started on heparin drip due to acute pulmonary embolism Will monitor serial H&H's - Time Spent with Patient Total time spent is greater than 50% in coordination of care (as documented) at patient's floor/unit and/or counseling patient: Internal Medicine: Result - Labs CBC & Chem 7: 03/15/18 04:22 03/15/18 04:22 Labs: Short CBC 03/15/18 Range/Units 04:22 WBC 14.9 H (4.3-11.1) K/mcL Hgb 10.4 L (11.5-15.4) g/dL Hct 30.3 L (35.3-44.9) % Plt Count 229 (140-400) K/mcL Neutrophils # 12.3 H (1.6-8.9) K/mcL BMP 03/14/18 03/14/18 03/15/18 17:29 21:29 04:22 Sodium 137 Potassium 3.6 3.4 L 2.7 L Chloride 104 Carbon Dioxide 25 BUN 12 Creatinine 0.62 Glucose 126 H Calcium 8.3 L - ABG Interpretation ABG results: ABG ABG pH 7.48 pH Units (7.32-7.45) H 03/15/18 11:58 ABG pCO2 40 mmHg (35-45) 03/15/18 11:58 ABG pO2 93 mmHg (85-104) 03/15/18 11:58 ABG O2 Saturation 98 % (95-98) 03/15/18 11:58 - Impressions Impressions Chest CTA 03/15/18 15:30 IMPRESSION: 1. Acute segmental pulmonary artery embolism right lower lobe. 2. Cardiomegaly with small bilateral pleural effusions and lower lobe atelectasis or infiltrate right greater than left. 3. Small cluster of nodules within the right upper lobe posterior segment measuring up to 4.6 x 3.3 mm. Refer to Fleischner criteria follow-up. 4. Nonspecific ground-glass densities right upper lobe likely representing post infectious or inflammatory origin. Dr. Ribeiro has been paged. An addendum will be added when the referring physician is able to be contacted. RECOMMENDATIONS: Fleischner Society guidelines for follow-up and management of incidentally detected pulmonary nodules: Multiple Solid Nodules: Nodule size less than 6 mm In a low-risk patient, no routine follow-up. In a high-risk patient, optional CT at 12 months. - Low risk patients include individuals with minimal or absent history of smoking and other known risk factors. - High risk patients include individuals with a history or smoking or known risk factors. Radiology 2017 http://pubs.rsna.org/doi/full/[email or web address] D/ / 03/15/2018 16:41:12 Matty Nicolas MD / Lita Shields Interpreting Provider: Matty Nicolas MD - VTE Documentation of Mechanical Device: Graduated compression elastic hosiery Consult Discharge Plan - Plan Referrals: Jamarcus Rodriguez DO [Primary Care Provider] - 03/23/18 1:30 pm Edouard Pereira MD [Partnered Physician] - (sent web request on 03-12-18 1000) (5) Hypothyroidism Qualifiers: Hypothyroidism type: unspecified Qualified Code(s): E03.9 - Hypothyroidism, unspecified (6) Hypertension Qualifiers: Hypertension type: essential hypertension Qualified Code(s): I10 - Essential (primary) hypertension (7) Coronary artery disease Qualifiers: Coronary Disease-Associated Artery/Lesion type: [place] artery [place] vs. transplanted heart: [place] heart Associated angina: without angina Qualified Code(s): I25.10 - Atherosclerotic heart disease of [place] coronary artery without angina pectoris
[2018-03-15 18:14] LABS: Hematocrit 32.5 % (35.3-44.9); Hematocrit 32.6 % (35.3-44.9); Hemoglobin 11.3 g/dL (11.5-15.4); Mean Corpuscular HGB Conc 34.8 g/dL (31.6-35.5); Mean Corpuscular Hemoglobin 30.7 pg (28.0-33.3); Mean Corpuscular Volume 88.3 fL (83.0-100.0); Mean Platelet Volume 9.6 fL (9.4-12.4); Platelet Count 274 K/mcL (140-400); Red Blood Count 3.68 M/mcL (3.82-4.97); Red Cell Distribution Width 13.2 % (11.5-14.5)
[2018-03-15] MEDS: Heparin 25,000 UNIT/500 ML D5W 25,000 UNIT/500 ML BAG IVC SCH (18:18)
[2018-03-15 18:21] LABS: Heparin anti-factor XA UFH 0.04 IU/mL (0.30-0.70)
[2018-03-15 18:22] LABS: INR 1.2; Prothrombin Time 13.3 Seconds (9.4-12.1)
[2018-03-16 00:58] LABS: Hematocrit 32.2 % (35.3-44.9); Hemoglobin 11.6 g/dL (11.5-15.4)
[2018-03-16] MEDS: traMADol 50 MG TABLET PO PRN ×2 (06:33→22:28)
[2018-03-16 06:58] LABS: Basophils # 0.1 K/mcL (0.0-0.2); Basophils % 0.5 %; Eosinophils # 0.5 K/mcL (0.0-0.6); Eosinophils % 2.6 %; Hematocrit 36.1 % (35.3-44.9); Hemoglobin 12.5 g/dL (11.5-15.4); Immature Granulocytes % 2.7 % (0-4); Lymphocytes # 5.5 K/mcL (0.6-4.6); Lymphocytes % 27.9 %; Mean Corpuscular HGB Conc 34.6 g/dL (31.6-35.5); Mean Corpuscular Hemoglobin 31.2 pg (28.0-33.3); Mean Platelet Volume 9.5 fL (9.4-12.4); Monocytes # 1.5 K/mcL (0.0-1.3); Monocytes % 7.8 %; Neutrophils # 11.5 K/mcL (1.6-8.9); Nucleated Red Blood Cells 0.3 /100 WBC (0); Platelet Count 281 K/mcL (140-400); Red Blood Count 4.01 M/mcL (3.82-4.97); Red Cell Distribution Width 13.3 % (11.5-14.5); Segmented Neutrophils % 58.5 %
[2018-03-16 07:14] LABS: BUN/Creatinine Ratio 12 (6-26); Blood Urea Nitrogen 8 mg/dL (8-23); Calcium 8.4 mg/dL (8.6-10.3); Carbon Dioxide 33 mEq/L (23-29); Chloride 96 mEq/L (98-107); Glucose 84 mg/dL (70-105); Osmolality,Calculated 280 (280-300); Potassium 2.7 mEq/L (3.5-5.1); Sodium 136 mEq/L (136-145); eGFR For Non-African Americans > 60 (> 60)
[2018-03-16] MEDS ORDERED: Potassium Chloride Elixir 20 MEQ/15 ML UDC PO ONE (07:45)
[2018-03-16] MEDS: metroNIDAZOLE 500 MG TABLET PO SCH ×3 (08:22→20:16)
[2018-03-16] MEDS: Folic Acid 1 MG TABLET PO SCH (08:22)
[2018-03-16] MEDS: Cholecalciferol (D-3) 1,000 UNIT TABLET PO SCH (08:22)
[2018-03-16] MEDS: Pantoprazole 40 MG VIAL IVP SCH (08:23)
[2018-03-16] MEDS: Vitamin B Complex/Vit C/Vit E 1 EACH TABLET PO SCH (08:23)
[2018-03-16] MEDS: Hydrocortisone 10 MG TABLET PO SCH ×2 (08:23→17:41)
[2018-03-16] MEDS: Loratadine 10 MG TABLET PO SCH (08:23)
[2018-03-16] MEDS: Lisinopril 20 MG TABLET PO SCH (08:23)
[2018-03-16] MEDS: Tolterodine LA (24 HR) 2 MG CAP.ER.24H PO SCH (08:23)
[2018-03-16] MEDS: Isosorbide MONOnitrate (24 HR) 60 MG TAB.ER.24H PO SCH (08:23)
[2018-03-16] MEDS: Ondansetron 4 MG/2 ML VIAL IVP PRN (09:05)
[2018-03-16] MEDS ORDERED: *HR* Promethazine 25 MG/ML VIAL IVP PRN (10:42)
[2018-03-16 11:33] LABS: Hematocrit 35.5 % (35.3-44.9); Hemoglobin 12.2 g/dL (11.5-15.4)
--- NOTE | 2018-03-16 11:37 | Internal Med Progress Note ---
Hospitalist Progress Note - Encounter Date of Encounter: 03/16/18 Time of Encounter: 09:00 - Subjective Interval History: Denies any chest pain, shortness of breath, or palpitation. Had one BM this morning which was nonbloody. No lightheadedness or dizziness. - Exam Vitals: Temp Pulse Resp BP Pulse Ox 98.4 F 65 18 163/95 98 03/16/18 10:27 03/16/18 10:27 03/16/18 10:27 03/16/18 10:27 03/16/18 10:27 Exam: General: Alert and oriented, not in acute distress. Cardiovascular:Normal S1 & S2, No JVD. Pulse regular. Lungs: clear to auscultation, no wheezes/rales Abdomen:Soft, non-tender, no rigidity. Skin:Normal color, no rash, no lesions. - Assessment and Plan (1) Acute respiratory failure with hypoxia Current Visit: Yes Status: Acute Assessment and Plan: Patient with acute hypoxic respiratory failure secondary to PE as below AC with heparin gtt Wean oxygen as tolerates Echocardiogram pending (2) Pulmonary embolism Current Visit: Yes Status: Acute Assessment and Plan: Patient found to have acute segmental pulmonary artery embolism in the right lower lobe follow up on echocardiogram to look for RV strain continue on heparin drip will likely transition to PO anticoagulants tomorrow and discharge (3) Acute ischemic colitis Current Visit: Yes Status: Acute Assessment and Plan: Patient presented with a history of lower GI bleed GI was consulted and suspects patient with ischemic colitis CT also showed findings possibly related to colitis for which she is on cipro/ flagyl D3 today GI panel -ve She reports that bloody bowel movements have resolved. continue abx, aim for 5 days in total, will transition to PO agents upon discharge Recommendations for patient to follow-up in 6 weeks for colonoscopy. (4) Severe sepsis Current Visit: Yes Status: Acute Assessment and Plan: Resolved (5) Adrenal insufficiency Current Visit: Yes Status: Chronic Assessment and Plan: continue home dose of hydrocort (6) Hypothyroidism Current Visit: Yes Status: Chronic Assessment and Plan: Continue home synthroid (7) Hypertension Current Visit: Yes Status: Chronic Assessment and Plan: persistently elevated, associated with hypokalemia will d/c HCTZ and increase lisinopril to 20mg QD (8) Coronary artery disease Current Visit: Yes Status: Chronic Assessment and Plan: Continue home meds, Hb stable ASA resumed (9) Hypokalemia Current Visit: Yes Status: Acute Assessment and Plan: Repleted, check Mg d/c HCTZ and increase lisinopril as above (10) DVT prophylaxis Current Visit: Yes Status: Acute Assessment and Plan: heparin gtt as above - Time Spent with Patient Total time spent is greater than 50% in coordination of care (as documented) at patient's floor/unit and/or counseling patient: Greater than 35 minutes Plan of Care Discussed with: nurse Internal Medicine: Result - Labs CBC & Chem 7: 03/16/18 10:56 03/16/18 06:30 Labs: Short CBC 03/15/18 03/15/18 03/16/18 Range/Units 17:37 17:37 00:30 WBC 16.2 H (4.3-11.1) K/mcL Hgb 11.3 L 11.3 L 11.6 (11.5-15.4) g/dL Hct 32.5 L 32.6 L 32.2 L (35.3-44.9) % Plt Count 274 (140-400) K/mcL Neutrophils # (1.6-8.9) K/mcL 03/16/18 03/16/18 Range/Units 06:30 10:56 WBC 19.7 H (4.3-11.1) K/mcL Hgb 12.5 12.2 (11.5-15.4) g/dL Hct 36.1 35.5 (35.3-44.9) % Plt Count 281 (140-400) K/mcL Neutrophils # 11.5 H (1.6-8.9) K/mcL BMP 03/16/18 06:30 Sodium 136 Potassium 2.7 L Chloride 96 L Carbon Dioxide 33 H BUN 8 Creatinine 0.67 Glucose 84 Calcium 8.4 L - ABG Interpretation ABG results: ABG ABG pH 7.48 pH Units (7.32-7.45) H 03/15/18 11:58 ABG pCO2 40 mmHg (35-45) 03/15/18 11:58 ABG pO2 93 mmHg (85-104) 03/15/18 11:58 ABG O2 Saturation 98 % (95-98) 03/15/18 11:58 PT/INR, D-dimer PT 13.3 Seconds (9.4-12.1) H 03/15/18 17:37 - Impressions Impressions Chest CTA 03/15/18 15:30 IMPRESSION: 1. Acute segmental pulmonary artery embolism right lower lobe. 2. Cardiomegaly with small bilateral pleural effusions and lower lobe atelectasis or infiltrate right greater than left. 3. Small cluster of nodules within the right upper lobe posterior segment measuring up to 4.6 x 3.3 mm. Refer to Fleischner criteria follow-up. 4. Nonspecific ground-glass densities right upper lobe likely representing post infectious or inflammatory origin. Findings were conveyed to Dr. Ribeiro 4:37 p.m. 03/15/2018 RECOMMENDATIONS: Fleischner Society guidelines for follow-up and management of incidentally detected pulmonary nodules: Multiple Solid Nodules: Nodule size less than 6 mm In a low-risk patient, no routine follow-up. In a high-risk patient, optional CT at 12 months. - Low risk patients include individuals with minimal or absent history of smoking and other known risk factors. - High risk patients include individuals with a history or smoking or known risk factors. Radiology 2017 http://pubs.rsna.org/doi/full/10.1148/radiol.[email or web address] D/ / 03/15/2018 16:41:12 Matty Nicolas MD / Lita Shields Interpreting Provider: Matty Nicolas MD - VTE Documentation of Mechanical Device: Intermittent pneumatic compression device Consult Discharge Plan - Plan Referrals: Jamarcus Rodriguez DO [Primary Care Provider] - 03/23/18 1:30 pm Edouard Pereira MD [Partnered Physician] - (sent web request on 03-12-18 [id number]) (2) Pulmonary embolism Qualifiers: Pulmonary embolism type: other Chronicity: acute Acute cor pulmonale presence: without acute cor pulmonale Qualified Code(s): I26.99 - Other pulmonary embolism without acute cor pulmonale (6) Hypothyroidism Qualifiers: Hypothyroidism type: unspecified Qualified Code(s): E03.9 - Hypothyroidism, unspecified (7) Hypertension Qualifiers: Hypertension type: essential hypertension Qualified Code(s): I10 - Essential (primary) hypertension (8) Coronary artery disease Qualifiers: Coronary Disease-Associated Artery/Lesion type: [place] artery [place] vs. transplanted heart: [place] heart Associated angina: without angina Qualified Code(s): I25.10 - Atherosclerotic heart disease of [place] coronary artery without angina pectoris
[2018-03-16] MEDS: Heparin 25,000 UNIT/500 ML D5W 25,000 UNIT/500 ML BAG IVC SCH (14:42)
[2018-03-17 06:05] LABS: Basophils # 0.1 K/mcL (0.0-0.2); Basophils % 0.8 %; Eosinophils # 0.5 K/mcL (0.0-0.6); Eosinophils % 2.6 %; Hematocrit 33.4 % (35.3-44.9); Hemoglobin 11.2 g/dL (11.5-15.4); Lymphocytes # 5.8 K/mcL (0.6-4.6); Lymphocytes % 33.4 %; Mean Corpuscular HGB Conc 33.5 g/dL (31.6-35.5); Mean Corpuscular Hemoglobin 30.4 pg (28.0-33.3); Mean Corpuscular Volume 90.8 fL (83.0-100.0); Mean Platelet Volume 9.5 fL (9.4-12.4); Monocytes # 1.5 K/mcL (0.0-1.3); Monocytes % 8.6 %; Neutrophils # 8.7 K/mcL (1.6-8.9); Nucleated Red Blood Cells 0.1 /100 WBC (0); Platelet Count 270 K/mcL (140-400); Red Blood Count 3.68 M/mcL (3.82-4.97); Red Cell Distribution Width 13.8 % (11.5-14.5); Segmented Neutrophils % 50.6 %
[2018-03-17 06:31] LABS: BUN/Creatinine Ratio 12 (6-26); Blood Urea Nitrogen 9 mg/dL (8-23); Calcium 8.4 mg/dL (8.6-10.3); Carbon Dioxide 29 mEq/L (23-29); Chloride 100 mEq/L (98-107); Glucose 84 mg/dL (70-105); Magnesium 1.6 mg/dL (1.6-2.6); Osmolality,Calculated 280 (280-300); Potassium 3.9 mEq/L (3.5-5.1); Sodium 136 mEq/L (136-145); eGFR For Non-African Americans > 60 (> 60)
[2018-03-17] MEDS: Lisinopril 20 MG TABLET PO SCH (08:29)
[2018-03-17] MEDS: Isosorbide MONOnitrate (24 HR) 60 MG TAB.ER.24H PO SCH (08:29)
[2018-03-17] MEDS: Folic Acid 1 MG TABLET PO SCH (08:29)
[2018-03-17] MEDS: Cholecalciferol (D-3) 1,000 UNIT TABLET PO SCH (08:29)
[2018-03-17] MEDS: Tolterodine LA (24 HR) 2 MG CAP.ER.24H PO SCH (08:29)
[2018-03-17] MEDS: Hydrocortisone 10 MG TABLET PO SCH (08:29)
[2018-03-17] MEDS: Vitamin B Complex/Vit C/Vit E 1 EACH TABLET PO SCH (08:29)
[2018-03-17] MEDS: metroNIDAZOLE 500 MG TABLET PO SCH ×2 (08:30→16:46)
[2018-03-17] MEDS: Loratadine 10 MG TABLET PO SCH (08:35)
[2018-03-17] MEDS ORDERED: hydroCHLOROthiazide 25 MG TABLET PO SCH (09:00)
--- NOTE | 2018-03-17 10:43 | Discharge Summary ---
- NOTES TO OUTPATIENT PROVIDER Notes to Outpatient Provider: Patient was admitted for ischemic colitis and pulmonary embolism. Started on eliquis for anti-coagulation. GI plans on performing colonoscopy in 6 weeks as an outpatient Orders not resulted at time of discharge: Pending orders 03/17/18 12:15 Heparin anti-factor XA UFH [COAG] Timed Date of Encounter: 03/17/18 Time of Encounter: 08:30 - Discharge Diagnosis (1) Acute respiratory failure with hypoxia Priority: Primary Status: Acute (2) Pulmonary embolism Priority: Secondary Status: Acute Qualifiers: Pulmonary embolism type: other Chronicity: acute Acute cor pulmonale presence: without acute cor pulmonale Qualified Code(s): I26.99 - Other pulmonary embolism without acute cor pulmonale (3) Acute ischemic colitis Priority: Secondary Status: Acute (4) Severe sepsis Priority: Secondary Status: Acute (5) Adrenal insufficiency Priority: Secondary Status: Chronic (6) Hypothyroidism Priority: Secondary Status: Chronic Qualifiers: Hypothyroidism type: unspecified Qualified Code(s): E03.9 - Hypothyroidism , unspecified (7) Hypertension Priority: Secondary Status: Chronic Qualifiers: Hypertension type: essential hypertension Qualified Code(s): I10 - Essential (primary) hypertension (8) Coronary artery disease Priority: Secondary Status: Chronic Qualifiers: Coronary Disease-Associated Artery/Lesion type: [place] artery [place] vs. transplanted heart: [place] heart Associated angina: without angina Qualified Code(s): I25.10 - Atherosclerotic heart disease of [place] coronary artery without angina pectoris (9) Hypokalemia Priority: Secondary Status: Acute (10) DVT prophylaxis Priority: Secondary Status: Acute Hospital course: Ms. Kamara is a 72 year old female with history of CAD was admitted for abdominal pain and diarrhea. She was diagnosed with ischemic colitis and was treated conservatively which resulted in resolution ofher symptoms. She was empirically started on cipro/flagyl which is to be completed for a total of 5 days. During her stay, she developed acute hypoxic respiratory failure and was found to have pulmonary embolism. No evidence of RV strain on echocardiogram. Since she did not have any blood in her BM despite ischemic colitis, she was anticoagulated with heparin drip during her stay which was transitioned to by mouth Eliquis at the time of discharge. Her BP was uncontrolled during her stay and had her lisinopril dosage increased to 20mg QD. - Time Spent with Patient Total time spent providing and/or coordinating discharge services: - Discharge Medications Prescriptions: Apixaban [Eliquis] 10 mg PO BID #42 tablet Ciprofloxacin [Cipro] 500 mg PO BID #4 tablet Lisinopril [Zestril] 20 mg PO DAILY #30 tablet metroNIDAZOLE [Flagyl] 500 mg PO TID #6 tablet Home Medications: Atorvastatin Calcium [Lipitor] 80 mg PO HS 03/11/18 [History] Citalopram [CeleXA] 20 mg PO DAILY 03/11/18 [History] Hydrocortisone [Cortef] 10 mg PO QPM 03/11/18 [History] Hydrocortisone [Cortef] 20 mg PO QAM 03/11/18 [History] Isosorbide MONOnitrate (24 HR) [Imdur] 60 mg PO DAILY 03/11/18 [History] Levothyroxine Sodium [Levoxyl] 75 mcg PO DAILY 03/11/18 [History] Metoprolol [Lopressor] 25 mg PO BID 03/11/18 [History] Omeprazole [PriLOSEC] 20 mg PO DAILY 03/11/18 [History] Potassium Chloride [Klor-Con 10] 10 meq PO DAILY 03/11/18 [History] Tolterodine LA (24 HR) [Detrol LA] 2 mg PO DAILY 03/11/18 [History] Tramadol HCl [Ultram] 50 mg PO QID PRN 03/11/18 [History] hydroCHLOROthiazide [Hydrochlorothiazide] 25 mg PO DAILY 03/11/18 [History] Biotin 1,000 mcg PO DAILY 03/12/18 [History] Ca/D3/Mag#11/Zinc/Ecg Technician/Tito/Bor [Caltrate 600+D Plus Tablet] 1 tab PO DAILY 03/12 [History] Folic Acid 0.4 mg PO DAILY 03/12/18 [History] Loratadine [Claritin] 10 mg PO DAILY 03/12/18 [History] Multivitamin,Stress Formula [Stress Formula] 1 tab PO DAILY 03/12/18 [History] Apixaban [Eliquis] 10 mg PO BID #42 tablet 03/17/18 [Rx] Ciprofloxacin [Cipro] 500 mg PO BID #4 tablet 03/17/18 [Rx] Lisinopril [Zestril] 20 mg PO DAILY #30 tablet 03/17/18 [Rx] metroNIDAZOLE [Flagyl] 500 mg PO TID #6 tablet 03/17/18 [Rx] Allergies/Adverse Reactions: 3 Allergy/AdvReac Type Severity Reaction Status Date / Time No Known Allergies Allergy Verified 03/11/18 13:41 Date of admission: 03/11/18 18:59 Primary care physician: Jamarcus Rodriguez Consults: 03/11/18 23:05 Consult to Pastoral Services [CONS] Routine Comment: Consult to Vet Assistant [CONS] Routine Reason for SW Consult: uses home health services & PT (recent knee replacement) 03/16/18 11:14 Consult to Physical Therapy [CONS] Routine Comment: Evaluate, develop and implement POC Reason for Consult: deconditioning Does patient have active BEDREST order?: No Is patient medically & hemodynamically stable?: Yes - Constitutional Vitals: Temp Pulse Resp BP Pulse Ox 98.3 F 70 18 156/87 97 03/17/18 07:30 03/17/18 07:30 03/17/18 07:30 03/17/18 07:30 03/17/18 07:30 Exam: General: Alert and oriented, not in acute distress. Cardiovascular:Normal S1 & S2, No JVD. Pulse regular. Lungs: clear to auscultation, no wheezes/rales Abdomen:Soft, non-tender, no rigidity. Skin:Normal color, no rash, no lesions. - Patient Status Disposition: Home Health Service Condition: Fair Overall status at discharge: patient is progressing back to baseline - Discharge Instructions Instructions: Acute Respiratory Distress Syndrome (DC), Pulmonary Embolism (DC) Follow Up With: Jamarcus Rodriguez DO [Primary Care Provider] - 03/23/18 1:30 pm Edouard Pereira MD [Partnered Physician] - (sent web request on 03-12-18 [id number]) - Diet and Activity Activity: as per physical therapy Diet: advance to your usual diet - VTE Documentation of Mechanical Device: Intermittent pneumatic compression device
--- NOTE | 2018-03-17 10:50 | Physician Discharge Referral ---
Home Health/Hosp Referral Info Transfer to: Home Health - Diagnosis (1) Acute respiratory failure with hypoxia Priority: Primary Status: Acute (2) Pulmonary embolism Priority: Secondary Status: Acute (3) Acute ischemic colitis Priority: Secondary Status: Acute (4) Severe sepsis Priority: Secondary Status: Acute (5) Adrenal insufficiency Priority: Secondary Status: Chronic (6) Hypothyroidism Priority: Secondary Status: Chronic (7) Hypertension Priority: Secondary Status: Chronic (8) Coronary artery disease Priority: Secondary Status: Chronic (9) Hypokalemia Priority: Secondary Status: Acute (10) DVT prophylaxis Priority: Secondary Status: Acute - Respiratory Orders Smoking Cessation: Smoking cessation has been advised. For more information, call the [place] Tobacco Quit Line at 3-518-DJTD-NOW. - Activity Activity Orders: Ambulate - Services Needed Following services are medically necessary services: Nursing, Physical Therapy - Transfer Medications Prescriptions: Apixaban [Eliquis] 10 mg PO BID #42 tablet Ciprofloxacin [Cipro] 500 mg PO BID #4 tablet Lisinopril [Zestril] 20 mg PO DAILY #30 tablet metroNIDAZOLE [Flagyl] 500 mg PO TID #6 tablet Home Medications: Atorvastatin Calcium [Lipitor] 80 mg PO HS 03/11/18 [History] Citalopram [CeleXA] 20 mg PO DAILY 03/11/18 [History] Hydrocortisone [Cortef] 10 mg PO QPM 03/11/18 [History] Hydrocortisone [Cortef] 20 mg PO QAM 03/11/18 [History] Isosorbide MONOnitrate (24 HR) [Imdur] 60 mg PO DAILY 03/11/18 [History] Levothyroxine Sodium [Levoxyl] 75 mcg PO DAILY 03/11/18 [History] Metoprolol [Lopressor] 25 mg PO BID 03/11/18 [History] Omeprazole [PriLOSEC] 20 mg PO DAILY 03/11/18 [History] Potassium Chloride [Klor-Con 10] 10 meq PO DAILY 03/11/18 [History] Tolterodine LA (24 HR) [Detrol LA] 2 mg PO DAILY 03/11/18 [History] Tramadol HCl [Ultram] 50 mg PO QID PRN 03/11/18 [History] hydroCHLOROthiazide [Hydrochlorothiazide] 25 mg PO DAILY 03/11/18 [History] Biotin 1,000 mcg PO DAILY 03/12/18 [History] Ca/D3/Mag#11/Zinc/Scrap Collector/Tito/Bor [Caltrate 600+D Plus Tablet] 1 tab PO DAILY 03/12 [History] Folic Acid 0.4 mg PO DAILY 03/12/18 [History] Loratadine [Claritin] 10 mg PO DAILY 03/12/18 [History] Multivitamin,Stress Formula [Stress Formula] 1 tab PO DAILY 03/12/18 [History] Apixaban [Eliquis] 10 mg PO BID #42 tablet 03/17/18 [Rx] Ciprofloxacin [Cipro] 500 mg PO BID #4 tablet 03/17/18 [Rx] Lisinopril [Zestril] 20 mg PO DAILY #30 tablet 03/17/18 [Rx] metroNIDAZOLE [Flagyl] 500 mg PO TID #6 tablet 03/17/18 [Rx] Allergies/Adverse Reactions: 3 Allergy/AdvReac Type Severity Reaction Status Date / Time No Known Allergies Allergy Verified 03/11/18 13:41 Certification: Further, I certify that my clinical findings support that this patient is homebound (i.e. absences from home require considerable and taxing effort and are for medical reasons or faith services or infrequently or short duration when for other reasons) because: Homebound Reason: Patient requires assistance of a person or device to safely leave home Attestation: My signature below is to certify that this patient is under my care and that I, or nurse practitioner, or a physician's operating room assistant working with me, has a face-to -face encounter with this patient.
[2018-03-17 11:36] VITALS: BP 129/74
[2018-03-17] MEDS ORDERED: Apixaban 5 MG TABLET PO SCH (11:45)
== END 2018-03-17 17:22 | disposition home health service (06) | DRG 871 ==
LOC: EMEROOARM 13:36 → SUATTDRO 18:59 → 2NNU 18:59
PROVIDERS: ADMIT Internal Medicine; ATTEND Internal Medicine